=== PATIENT | female | born 1950 | race Caucasian/White ===

== ENCOUNTER 2017-12-03 09:22 | Outpatient (CLI) | payer MEDICARE | END 2017-12-03 09:23 | disposition home or self-care (01) | LOC: BICMAMMO 09:22 | PROVIDERS: ATTEND Internal Medicine | DX: Z12.31 Encounter for screening mammogram for malignant neoplasm of breast (principal); Z80.3 Family history of malignant neoplasm of breast | CPT/HCPCS: 77063; 77067 ==

== ENCOUNTER 2018-10-20 13:17 | Emergency (ER) | payer MEDICARE ==
[2018-10-20 14:09] LABS: #Basophils 0.1 thou/uL (0.0-0.2); #Eosinphils 0.6 thou/uL (0.0-0.7); #Lymphocytes 1.6 thou/uL (1.20-3.40); #Monocytes 0.6 thou/uL (0.11-0.59); #Neutrophils 5.1 thou/uL (1.40-6.50); %Basophils 1.7 % (0.0-1.0); %Eosinophils 7.4 % (0.0-10.0); %Lymphocytes 20.3 % (21.0-51.0); %Monocytes 6.8 % (0.0-10.0); %Neutrophils 63.8 % (42.0-75.0); Hemoglobin 13.8 g/dL (12.0-16.0); Mean Corpuscular HGB CONC 32.7 g/dL (32.0-36.0); Mean Corpuscular Hemoglobin 26.6 pg (27.0-31.0); Mean Corpuscular Volume 81.3 fL (78.0-98.0); Mean Platelet Volume 6.6 fL (7.4-10.4); Platelet Count 246 thou/uL (130-400); RBC Distribution Width 12.9 % (11.5-14.5); Red Blood Cell (RBC) Count 5.19 mill/uL (4.20-5.40)
[2018-10-20 14:21] LABS: ALT (SGPT) 72 U/L (8-55); AST (SGOT) 48 U/L (5-34); Albumin 4.5 g/dL (3.4-4.8); Alkaline Phosphatase 65 U/L (40-150); Anion Gap 17 mmol/L (10-20); BUN (Urea Nitrogen) 22 mg/dL (9.8-20.1); Bilirubin, Total 0.4 mg/dL (0.2-1.2); Calc. Creatinine Clearance 0 mL/min (70-130); Calcium 10.6 mg/dL (7.8-10.44); Carbon Dioxide 26 mmol/L (23-31); Chloride 103 mmol/L (98-107); Estimated GFR-MDRD 37; Globulin 3.5 g/dL (2.4-3.5); Glucose 224 mg/dL (80-115); Potassium 3.6 mmol/L (3.5-5.1); Sodium 142 mmol/L (136-145)
== END 2018-10-20 15:00 | disposition home or self-care (01) ==
LOC: SCSER 13:17
DX: L03.314 Cellulitis of groin (principal); E11.65 Type 2 diabetes mellitus with hyperglycemia; E78.5 Hyperlipidemia, unspecified; I10 Essential (primary) hypertension; M10.9 Gout, unspecified; S37.009A Unspecified injury of unspecified kidney, initial encounter; Z79.899 Other long term (current) drug therapy; X58.XXXA Exposure to other specified factors, initial encounter
CPT/HCPCS: 80053; 85025; 93005; 96360

== ENCOUNTER 2018-10-24 19:10 | Emergency (ER) | payer MEDICARE | END 2018-10-24 19:25 | disposition home or self-care (01) | LOC: SCSER 19:10 | DX: L03.311 Cellulitis of abdominal wall (principal); E11.9 Type 2 diabetes mellitus without complications; E78.5 Hyperlipidemia, unspecified; I10 Essential (primary) hypertension; Z79.899 Other long term (current) drug therapy | CPT/HCPCS: 99282 ==

== ENCOUNTER 2018-12-03 10:38 | Outpatient (CLI) | payer MEDICARE ==
--- NOTE | 2018-12-03 16:02 | MRI ---
MRI LEFT FOREFOOT WITHOUT CONTRAST: 12/03/18 HISTORY: Infection. COMPARISON: None. FINDINGS: On the T1 weighted imaging sequence, there are no abnormal areas of marrow signal replacement to sug gest osteomyelitis. There are advanced degenerative changes of the great toe metatarsophalangeal joint. There is fragment ation of the medial hallux sesamoid which does contain some edema. MUSCLES: Muscle signal and bulk is normal. TENDONS: No significant tenosynovitis. IMPRESSION: 1. No evidence for osteomyelitis. No significant soft tissue swelling in the region of interest marker. 2. 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 3. No stress edema or stress fracture. POS: [facility]
== END 2018-12-03 10:39 | disposition home or self-care (01) ==
LOC: SCSMRI 10:38
PROVIDERS: ATTEND Internal Medicine
DX: L08.9 Local infection of the skin and subcutaneous tissue, unspecified (principal); M10.9 Gout, unspecified; M19.072 Primary osteoarthritis, left ankle and foot

== ENCOUNTER 2018-12-04 10:36 | Outpatient (CLI) | payer MEDICARE | END 2018-12-04 10:37 | disposition home or self-care (01) | LOC: BICMAMMO 10:36 | PROVIDERS: ATTEND Internal Medicine | DX: Z12.31 Encounter for screening mammogram for malignant neoplasm of breast (principal); Z80.3 Family history of malignant neoplasm of breast | CPT/HCPCS: 77063; 77067 ==

== ENCOUNTER 2019-12-08 09:43 | Outpatient (CLI) | payer MEDICARE ==
--- NOTE | 2019-12-08 10:55 | MMO ---
Bilateral MAMMO Bilat Screen [facility]. CLINICAL HISTORY: Patient is 69 years old and is seen for screening. The patient has no personal history of cancer. VIEWS: The views performed were: bilateral craniocaudal with tomosynthesis and bilateral mediolateral oblique with tomosynthesis. FILMS COMPARED: The present examination has been compared to prior imaging studies performed at [facility] on 11/30/2015, 12/01/2016, 12/03/2017 and 12/04/2018. This study has been interpreted with the assistance of computer-aided detection. MAMMOGRAM FINDINGS: The breasts are heterogeneously dense, which could obscure a lesion on mammography. There are no suspicious masses, suspicious calcifications, or new areas of architectural distortion. IMPRESSION: THERE IS NO MAMMOGRAPHIC EVIDENCE OF MALIGNANCY. A ROUTINE FOLLOW-UP MAMMOGRAM IN 1 YEAR IS RECOMMENDED. THE RESULTS OF THIS EXAM WERE SENT TO THE PATIENT. ACR BI-RADS Category 1 - Negative MAMMOGRAPHY NOTE: 1. A negative mammogram report should not delay a biopsy if a dominant of clinically suspicious mass is present. 2. Approximately 10% to 15% of breast cancers are not detected by mammography. 3. Adenosis and dense breasts may obscure an underlying neoplasm. Reported by: HANNAH ESTEVEZ MD Electonically Signed: [id number]
== END 2019-12-08 09:44 | disposition home or self-care (01) ==
LOC: BICMAMMO 09:43
PROVIDERS: ATTEND Internal Medicine
DX: Z12.31 Encounter for screening mammogram for malignant neoplasm of breast (principal)
CPT/HCPCS: 77063; 77067

== ENCOUNTER 2020-12-09 09:43 | Outpatient (CLI) | payer MEDICARE ==
--- NOTE | 2020-12-09 12:40 | MMO ---
Bilateral MAMMO Bilat Screen [facility]. CLINICAL HISTORY: Patient is 70 years old and is seen for screening. The patient has the following family history of breast cancer: mother, at age 80. The patient has no personal history of cancer. VIEWS: The views performed were: bilateral craniocaudal with tomosynthesis and bilateral mediolateral oblique with tomosynthesis. FILMS COMPARED: The present examination has been compared to prior imaging studies performed at [facility] on 12/01/2016, 12/03/2017, 12/04/2018 and 12/08/2019. This study has been interpreted with the assistance of computer-aided detection. MAMMOGRAM FINDINGS: The breasts are heterogeneously dense, which could obscure a lesion on mammography. There are no suspicious masses, suspicious calcifications, or new areas of architectural distortion. IMPRESSION: THERE IS NO MAMMOGRAPHIC EVIDENCE OF MALIGNANCY. A ROUTINE FOLLOW-UP MAMMOGRAM IN 1 YEAR IS RECOMMENDED. THE RESULTS OF THIS EXAM WERE SENT TO THE PATIENT. ACR BI-RADS Category 1 - Negative MAMMOGRAPHY NOTE: 1. A negative mammogram report should not delay a biopsy if a dominant of clinically suspicious mass is present. 2. Approximately 10% to 15% of breast cancers are not detected by mammography. 3. Adenosis and dense breasts may obscure an underlying neoplasm. Reported by: HANNAH ESTEVEZ MD Electonically Signed: [id number]
== END 2020-12-09 09:44 | disposition home or self-care (01) ==
LOC: BICMAMMO 09:43
PROVIDERS: ATTEND Internal Medicine
DX: Z12.31 Encounter for screening mammogram for malignant neoplasm of breast (principal); Z80.3 Family history of malignant neoplasm of breast
CPT/HCPCS: 77063; 77067

== ENCOUNTER 2021-12-19 10:17 | Outpatient (CLI) | payer MEDICARE | END 2021-12-19 10:18 | disposition home or self-care (01) | LOC: BICMAMMO 10:17 | PROVIDERS: ATTEND Internal Medicine | DX: Z12.31 Encounter for screening mammogram for malignant neoplasm of breast (principal); Z80.3 Family history of malignant neoplasm of breast | CPT/HCPCS: 77063; 77067 ==

== ENCOUNTER 2023-01-09 14:27 | Outpatient (CLI) | payer MEDICARE | END 2023-01-09 14:28 | disposition home or self-care (01) | LOC: BICMAMMO 14:27 | PROVIDERS: ATTEND Internal Medicine | DX: Z12.31 Encounter for screening mammogram for malignant neoplasm of breast (principal); Z80.3 Family history of malignant neoplasm of breast | CPT/HCPCS: 77063; 77067 ==

== ENCOUNTER 2023-01-17 11:19 | Outpatient (CLI) | payer MEDICARE | END 2023-01-17 11:20 | disposition home or self-care (01) | LOC: SCSMRI 11:19 | PROVIDERS: ATTEND Psychiatry & Neurology Neurology | DX: G44.52 New daily persistent headache (NDPH) (principal); R29.818 Other symptoms and signs involving the nervous system; I67.82 Cerebral ischemia | CPT/HCPCS: 70544; 70553; 82565 ==

== ENCOUNTER 2024-01-10 09:50 | Outpatient (CLI) | payer MEDICARE | END 2024-01-10 09:51 | disposition home or self-care (01) | LOC: BICMAMMO 09:50 | PROVIDERS: ATTEND Internal Medicine | DX: Z12.31 Encounter for screening mammogram for malignant neoplasm of breast (principal); Z80.3 Family history of malignant neoplasm of breast | CPT/HCPCS: 77063; 77067 ==